=== PATIENT | female | born 1995 | race Caucasian/White ===

== ENCOUNTER 2020-04-21 18:08 | Emergency (ER) | payer OTHER ==
[~2020-04-21] VITALS: Ht 162.6 cm; Wt 43.1 kg
[2020-04-21 18:19] VITALS: BP 117/73
--- NOTE | 2020-04-21 18:35 | NUR ---
25 y/o female from home c/o sudden onset lower abd pain s/p nap today. Pt states she woke up and felt urge to urinate but could not. Denies vaginal bleeding/discharge. States she is approx 7 wks . LMP 03/02/20. Denies pain at this time. VSS
--- NOTE | 2020-04-21 18:40 | NUR ---
Lab at bedside for blood draw
--- NOTE | 2020-04-21 18:40 | NUR ---
Ultrasound at bedside
--- NOTE | 2020-04-21 19:16 | NUR ---
RECIVED PT A&O X 4. RESPIRATIONS ARE EVEN AND UNLABORED, SKIN IS WARM AND DRY TO TOUCH. PT CURRENTLY DENIES ANY ABDOMINAL PAIN. BED IS LOCKED AND IN LOWEST POSITION.
--- NOTE | 2020-04-21 19:18 | NUR ---
Report given to [facility]. Transfer of care at this time
--- NOTE | 2020-04-21 19:28 | NUR ---
ERMD RE-EVALUATING PT AT BEDSIDE. UA COLLECTED.
[2020-04-21 19:31] LABS: BASOPHILS % (AUTO) 0.3 % (0.0-2.0); EOSINOPHILS # (AUTO) 0.2 K/uL (0-0.4); EOSINOPHILS % (AUTO) 1.7 % (0.0-4.0); HEMATOCRIT 43.1 % (36-48); HEMOGLOBIN 14.6 g/dL (12.0-16.0); LYMPHOCYTES # (AUTO) 2.3 K/uL (2.5-16.5); MEAN CORPUSCULAR HEMOGLOBIN 31 pg (27-31); MEAN CORPUSCULAR HGB CONC 34 g/dL (33-37); MEAN CORPUSCULAR VOLUME 92.6 fL (80-94); MONOCYTES # (AUTO) 0.8 K/uL (0.8-1.0); MONOCYTES % (AUTO) 5.9 % (1.7-9.3); NEUTROPHILS % (AUTO) 75.1 % (42.2-75.2); PLATELET COUNT (AUTO) 203 K/uL (140-450); RED BLOOD CELL COUNT(AUTO) 4.65 MIL/uL (4.20-5.40); RED CELL DISTRIBUTION WIDTH 12.4 % (11.6-13.7); WHITE BLOOD COUNT (AUTO) 13.4 K/uL (4.8-10.8)
[2020-04-21 20:35] VITALS: BP 122/88
--- NOTE | 2020-04-21 20:35 | NUR ---
Patient discharged with v/s stable. Written and verbal after care instructions given and explained. Patient verbalized understanding. Ambulatory with steady gait. All questions addressed prior to discharge. Advised to follow up with PMD.
[2020-04-21 21:08] LABS: APPEARANCE,URINE CLEAR (CLEAR); BILIRUBIN,URINE NEGATIVE (NEGATIVE); BLOOD, URINE NEGATIVE (NEGATIVE); COLOR,URINE YELLOW (YELLOW); LEUKOCYTE ESTERASE ,URINE NEGATIVE (NEGATIVE); NITRITE, URINE NEGATIVE (NEGATIVE); UGLUCOSE NEGATIVE (NEGATIVE)
== END 2020-04-21 20:35 | disposition home or self-care (01) ==
LOC: MED 18:08
DX: O26.891 Other specified pregnancy related conditions, first trimester (principal); Z34.00 Encounter for supervision of normal first pregnancy, unspecified trimester; Z3A.01 Less than 8 weeks gestation of pregnancy
CPT/HCPCS: 36415; 76817; 81003; 81025; 84702; 85025; 86900; 86901; 99284